=== PATIENT | female | born 1945 | race Caucasian/White ===

== ENCOUNTER → 2019-07-26 | Outpatient (CLI) | payer OTHER ==
--- NOTE | 2019-07-26 13:02 | PCVCIMAG ---
APPROVED REPORT Imaging Protocol: Rest Tc-99m/Stress Tc-99m 1 day Study performed: 07/26/2019 10:02:36 Indication: Lightheaded, Weakness, Near Syncope Patient Location: Out-Patient Stress Nurse: Birdie Franz RN MA Tech:Ramón Elizabeth [id number] Ht: 5 ft 2 in Wt: 150 lbs BSA: 1.69 m2 HR: 56 bpm BP: 149/63 mmHg BMI: 27.43 Rhythm: Sinus Bradycardia Medical History Medical History: Age, Hyperlipidemia Medications: Simvastatin, Prilosec Allergies: No known drug allergies Exercise History: Physically active Resting Data Rest SPECT myocardial perfusion imaging was performed in supine position 45 minutes following the intravenous injection of 11 mCi of Tc-99m Sestamibi. Time of rest injection: 45 Date: 07/26/2019 Administration Route: IV Administration Site: Right AC Exercise Stress At peak stress, the patient was injected intravenously with 31.8mCi of Tc-99m Sestamibi. Time of stress injection: 1100 Date: 07/26/2019 Administration Route: IV Administration Site: Right AC Patient continued to exercise for 6.5 minute(s). Gated Stress SPECT was performed 45 minutes after stress injection. The images were gated to evaluate regional wall motion and calculate left ventricular ejection fraction. Stress Test Details Stress Test: Exercise stress testing was performed using a Levy protocol. HRMax Heart Rate (APMHR): 145 bpm Resting HR: 56 bpmTarget HR (85% APMHR): 123 bpm Max HR Achieved: 136 bpm % of APMHR: 93 Recovery HR: 64 bpm BP Resting BP: 149/63 mmHg Max BP: 180/81 mmHg Recovery BP: 137/65 mmHg ECG Resting ECG: Sinus Bradycardia Stress ECG: Sinus Tachycardia ST Change: Non-ischemic Arrhythmia: PVC's Recovery ECG: Sinus Rhythm Clinical Reason for Termination: Maximal effort Stress Symptoms: Dyspnea Exercise duration: 6 min 31 sec Exercise capacity: 8.00 METs Overall Exercise Capacity for Age: Average Scale: Active Angina Score: None Symptoms resolved during recovery. Study Quality Study: Good Artifact: Mild Breast artifact Study Data Post stress, the left ventricular ejection was 76%.. SSS: 6 SRS: 10 SDS: 0 TID = 0.95. Perfusion There is a small area of mildly reduced uptake in the apical segment of the anterior wall which is seen on the stress images as well as the resting images. This area thickens and moves normally and is most consistent with attenuation artifact. Wall Motion Normal left ventricular wall motion. Nuclear Conclusion ECG Findings: negative for ischemia Clinical Findings: negative for ischemia Nuclear Findings: negative for ischemia Exercise Capacity: normal Left Ventricular Function: normal Risk Study: low This study is of low probability for inducible ischemia or prior infarct. Normal global and segmental LV systolic function. Artifact: Mild Breast artifact
== END | disposition home or self-care (01) ==
LOC: PCVCIMAG 09:25
PROVIDERS: ATTEND Internal Medicine Cardiovascular Disease
DX: R42 Dizziness and giddiness (principal); R53.1 Weakness; R55 Syncope and collapse
CPT/HCPCS: 78452; 93017; A9500